=== PATIENT | female | born 1940 | race Caucasian/White ===

== ENCOUNTER 2018-02-08 14:11 | Emergency (ER) | payer OTHER ==
[~2018-02-08] VITALS: Ht 165.1 cm; Wt 92.1 kg
[~2018-02-08 14:11] MED LIST: ATENOLOL25 MG PO; ATIVAN0.5 M1 PO; COZ50 PO; ECO81 PO; FER300 PO; K10 PO; LAC PO; LEXAPRO10 MG PO; LISINOPRIL10 MG PO; MAC100 PO; METOPROLOL TART25 M1 PO; NAPROXEN PO; NOR5 PO; OMEPRAZOLE DR20 M1 PO; OYSTER CALCIUM1 TAB PO; PRAVACHOL20 MG PO; PRI20 PO; SYN88 PO; VITAMIN D1 TA1 PO; ZES10 PO; ZOCOR20 MG PO; [UNRECOGNIZED DRUG - OTHER] PO
[2018-02-08 18:35] VITALS: BP 162/106
== END 2018-02-08 18:35 | disposition home or self-care (01) ==
LOC: ED 14:11
DX: R51 Headache (principal); M54.5 Low back pain; R30.9 Painful micturition, unspecified; I10 Essential (primary) hypertension

== ENCOUNTER 2019-04-19 16:43 | Emergency (ER) | payer OTHER ==
[~2019-04-19] VITALS: Ht 165.1 cm; Wt 88.0 kg
[2019-04-19 17:31] VITALS: Ht 165.1 cm; Wt 88.0 kg
[2019-04-19 18:26] LABS: BASOPHIL % 0.8 % (0-2); PLATELET COUNT 256 x10^3mcL (130-400)
[2019-04-19 18:27] LABS: RED CELL DISTRIBUTION WIDTH 16.9 % (11.5-14.5)
[2019-04-19 18:33] LABS: CALCIUM 9.2 mg/dL (8.5-10.1); CARBON DIOXIDE 23.8 mmol/L (21-32); CHLORIDE SERUM 103 mmol/L (98-107); CREATININE SERUM 1.4 mg/dL (0.6-1.0); GLUCOSE SERUM 97 mg/dL (74-106); POTASSIUM SERUM 4.2 mmol/L (3.5-5.1); SODIUM SERUM 138 mmol/L (136-145)
[2019-04-19 18:37] LABS: ALBUMIN 3.6 g/dL (3.4-5.0); ALKALINE PHOSPHATASE 65 U/L (46-116); ALT/SGPT 23 U/L (14-59); AST/SGOT 19 U/L (15-37); BILIRUBIN TOTAL 0.25 mg/dL (0.20-1.00); TOTAL PROTEIN, SERUM 6.9 g/dL (6.4-8.2)
[2019-04-19 21:01] VITALS: BP 159/82
== END 2019-04-19 21:01 | disposition home or self-care (01) ==
LOC: ED 16:43
PROVIDERS: Emergency Medicine
DX: F41.9 Anxiety disorder, unspecified (principal); R06.02 Shortness of breath; R25.1 Tremor, unspecified; R53.1 Weakness; R00.2 Palpitations; I10 Essential (primary) hypertension; E78.00 Pure hypercholesterolemia, unspecified; Z86.73 Personal history of transient ischemic attack (TIA), and cerebral infarction without residual deficits
CPT/HCPCS: 36415; 83880; Q0092